=== PATIENT | male | born 1960 | race Caucasian/White ===

== ENCOUNTER 2020-10-01 14:40 | Emergency (ER) | payer OTHER ==
[~2020-10-01] VITALS: Ht 190.5 cm; Wt 94.3 kg
[2020-10-01 14:51] VITALS: BP_SYST 154
--- NOTE | 2020-10-01 15:01 | NUR ---
AMBULATED TO BED 5
--- NOTE | 2020-10-01 15:05 | NUR ---
Note olive in EDM - 10/01/20 at 1513 by MICHELLE PT AAO AND AMBULATORY C/O ABDOMINAL PAIN X 1 DAY 05/12 AND 4 EPISODES OF VOMITING TODAY.
--- NOTE | 2020-10-01 15:05 | NUR ---
PT AAO AND AMBULATORY C/O LAC TO LEFT RING FINGER THAT OCCURRED WHEN HE WAS PLANNING WOOD. PT REPORTS 5/10 PAIN SCALE CURRENTLY. BLEEDING CURRENTLY CONTROLLED DRESSING IN PLACE.
--- NOTE | 2020-10-01 15:10 | NUR ---
ER Dr. HILARIO at bedside examining patient.
[2020-10-01] MEDS ORDERED: BACITRACIN 1 GM OINT TP ONE (15:23)
[2020-10-01] MEDS ORDERED: KETOROLAC TROMETHAMINE 60 MG/2 ML VIAL IM ONE ×2 (15:30→15:36)
--- NOTE | 2020-10-01 15:43 | NUR ---
PT XRAYS COMPLETE
[2020-10-01 16:17] VITALS: BP_SYST 154
--- NOTE | 2020-10-01 16:17 | NUR ---
Patient given written and verbal discharge instructions and verbalizes understanding. DR. SULAIMAN SINGER MD discussed with patient the results and treatment provided. Patient in stable condition. ID arm band removed. Rx of MOTRIN AND TRAMADOL given. Patient educated on pain management and to follow up with PMD. Pain Scale 0/10. Opportunity for questions provided and answered. Medication side effect fact sheet provided.
== END 2020-10-01 16:17 | disposition home or self-care (01) ==
LOC: SED 14:40
DX: S61.211A Laceration without foreign body of left index finger without damage to nail, initial encounter (principal); R03.0 Elevated blood-pressure reading, without diagnosis of hypertension; Z95.0 Presence of cardiac pacemaker; W22.8XXA Striking against or struck by other objects, initial encounter; Y93.89 Activity, other specified; Y92.89 Other specified places as the place of occurrence of the external cause; Y99.8 Other external cause status
CPT/HCPCS: 73140; 96372; 99283; J1885